=== PATIENT | male | born 1960 | race Caucasian/White ===

== ENCOUNTER → 2018-02-10 14:38 | Outpatient (CLI) | payer OTHER, SELFPAY ==
--- NOTE | 2018-02-10 15:53 | P.PCN_ITS ---
Cardiac Stress Test Report Referral & Results Date Patient Seen: 02/10/18 Time Patient Seen: 15:52 Indication: Chest pain Rest ECG: Unremarkable Procedure Note: Today following both written and verbal informed consent, the patient was exercised according to a standard Alex protocol. The patient exercised for a total of 9 min 5 sec achieving a maximum heart rate of 166. Patient's maximum systolic blood pressure was 200. This was an estimated 10.1 MET's. There are no ST-T segment changes identified Normal heart rate and blood pressure response perhaps slightly tachycardic overall Rare PVC identified Functional aerobic impairment rated 0 on the active scale Impression: No evidence of ischemia. Average exercise capacity for an active 57 -year-old Please note: Actual ECG tracings can be found in the PACS system.
== END ==
DX: R07.9 Chest pain, unspecified (principal)
CPT/HCPCS: 93016; 93017; 93018

== ENCOUNTER → 2018-10-15 09:22 | Outpatient (CLI) | payer OTHER, SELFPAY ==
--- NOTE | 2018-10-15 | DI.RAD.S_ITS ---
PROCEDURE: [place] BARIUM SWALLOW INDICATIONS: Dysphagia, unspecified COMPARISON: None. FINDINGS: Function: There is normal esophageal peristalsis. There was a single episode of minimal gastroesophageal reflux visualized to the level of the distal, lower margins of the esophagus. There is normal transit of a calibrated barium tablet through the esophagus into the stomach. Morphology: Air-contrast images demonstrate normal mucosal morphology. Single contrast views show no esophageal strictures, extrinsic mass effects, or diverticula. A small sliding hiatal hernia is noted. Limited images of the stomach demonstrate normal appearance. IMPRESSION: Minimal gastroesophageal reflux with small sliding hiatal hernia. Otherwise, unremarkable barium swallow examination. Dictated by: Lino Bowers M.D. on 10/15/2018 at 17:24 Approved by: Lino Bowers M.D. on 10/15/2018 at 17:26
== END ==
PROVIDERS: Visit Provider Family Medicine
DX: R13.10 Dysphagia, unspecified (principal); K44.9 Diaphragmatic hernia without obstruction or gangrene
CPT/HCPCS: 74220

== ENCOUNTER → 2019-03-03 08:54 | Outpatient (CLI) | payer OTHER, SELFPAY ==
--- NOTE | 2019-03-03 | DI.RAD.S_ITS ---
PROCEDURE: FL BARIUM SWALLOW W SPEECH INDICATIONS: dysphagia TECHNIQUE: Examination was conducted in conjunction with speech pathology per standard protocol. In the lateral projection, filming was performed of the patient swallowing. AP projection filming may also be performed with patient swallowing. COMPARISON: [facility], , [place] BARIUM SWALLOW, 10/15/2018, 9:57. FINDINGS: Function: The oral preparatory phase appears normal, with proper containment. The subsequent oral propulsive phase, pharyngeal phase, and esophageal phase of swallowing also appear normal with all proffered substances. No laryngotracheal penetration or aspiration. No pathologic vallecular pooling. Morphology: No cricopharyngeal bar is identified. No cervical esophageal webs. No Zenker's diverticulum. No strictures. IMPRESSION: Unremarkable modified barium swallow with speech pathology. Please see separate speech pathology report for further details. Dictated by: Lino Bowers M.D. on 03/03/2019 at 18:35 Approved by: Lino Bowers M.D. on 03/08/2019 at 10:03
--- NOTE | 2019-03-03 09:30 | ST.SWALLOW ---
Visit Care Team Role Provider Type Mk Gibson MD Attending Provider Physician Specialty: Ear, Nose, Throat Address: [address] [place] [address], [id number] Email: ST Modified Barium Swallow Study PACKAGING SUPERVISOR Modified Barium Swallow Study Start: 03/04/19 15:14 Freq: Status: Active Protocol: Document 03/03/19 15:14 TLC (Rec: 03/04/19 15:33 TLC [id number]) Modified Barium Swallow Study Total Time Visit Start Time 09:30 Visit Stop Time 10:00 Total Visit Minutes [address] Mk Gibson, ENT Reason for Referral Dysphagia Setting Setting Outpatient Care Patient Information Identification Type Name Patient History Patient presents for evaluation of dysphagia. Patient states he feels as if food/liquid occasionally goes down the wrong way and results in coughing both with liquids and solids which happens a few times a week, one coughing episode severe enough he suffered syncope ~2 months ago . Patient saw Dr. Gibson for laryngoscopy with no evidence of morbid disease. Barium swallow completed 10/15/18 shows minimal gastroesophageal reflux with small sliding hiatal hernia. Subjective Observations Patient was alert, oriented and cooperative during the exam. Patient Positioning Position View Lat-A/P Imaging Lateral View Textures Administered Trials Presented Thin Liquid via Spoon,Thin Liquid via Cup,[place] Liquid via Spoon,[place] Liquid via Cup,Honey Liquid via Spoon, Dysphagia Blenderized Textures ,Regular Textures Oral Phase Source: MBSIMP (TM) (C) Bolus Specific Scoring Grid Lip Closure No Impairment (WNL) Tongue Control During Bolus Hold No Impairment (WNL) Bolus Prep/Mastication No Impairment (WNL) Bolus Transport/Lingual Motion No Impairment (WNL) Oral Residue No Impairment (WNL) Additional Oral Phase Observations No oral impairment observed during study. Pharyngeal Phase Source: MBSIMP (TM) (C) Bolus Specific Scoring Grid Soft Palate Elevation No Impairment (WNL) Tongue Base Strength/Range of Motion Mild Impairment Laryngeal Elevation Mild Impairment Anterior Hyoid Movement No Impairment (WNL) Epiglottic Range of Motion Mild Impairment Vallecular Residue Yes Laryngeal Vestibular Closure Mild Impairment Pharyngeal Stripping Wave Mild Impairment Upper Esophageal Sphincter Opening Mild Impairment Residue in the Pyriform Sinuses Yes Additional Pharyngeal Phase Observations Observed partial superior movement of thyroid cartilage and partial approximation of arytenoids to epiglottic petiole as well as partial inversion of epiglottis which resulted in a collection of vallecular residue following all swallows. This residue cleared with subsequent swallows. Laryngeal vestibular closure was judged to be incomplete with one instance of penetration of puree textures during the swallow which was expelled from the airway after the swallow. No aspiration observed. Pharyngeal stripping wave was present but diminished. Pharyngoesophageal segment distension and duration were reduced resulting in collection of residue in pyriform sinus which cleared with subsequent swallows. Tongue base retraction was mildly impaired . A/P View Textures Administered Trials Presented [place]ubin[place] Liquid via Spoon, Dysphagia Blenderized Textures A/P View Observations Pharyngeal Contraction No Impairment (WNL) Esophageal Clearance Upright Position No Impairment (WNL) Additional Observations Complete clearance with esophageal coating Clinical Impressions Dysphagia Type Pharyngeal Findings Patient presents with mild- moderate pharyngeal dysphagia characterized by incomplete laryngeal elevation, epiglottic movement, laryngeal vestibular closure, tongue base retraction and pharyngoesophageal segment opening. This likely contributes to occasional episodes of aspiration consistent with patient's complaints. Recommend outpatient speech therapy for education and training in swallowing exercises to improve impaired physiological components of swallowing. Exercises to include: Effortful swallow, Magdaleno maneuver, Tongue pull back, Shaker/CTAR Rehabilitation Potential Good Patient Appropriate for Therapy Yes Recommendations Diet Liquids Order Thin Diet Order Regular Medication Recommendation As Tolerated Aspiration Precautions Recommended Precautions Upright at 90 Degrees,Small Bites/Sips,Effortful Swallow, Double Swallow Treatment Plan Therapy Recommendations Outpatient Speech Therapy
== END ==
PROVIDERS: Visit Provider Otolaryngology
DX: R13.10 Dysphagia, unspecified (principal)
CPT/HCPCS: 74230; 92611

== ENCOUNTER 2021-01-30 09:20 | Day surgery (SDC) | payer OTHER, SELFPAY ==
--- NOTE | 2021-01-30 | PATH_ITS ---
[facility] Accession Number: [id number] . 01 Material submitted: . colon - TRANSVERSE COLON POLYP X3 . 02 Diagnosis: Transverse Colon, Polyp x3, Biopsy: Tubular adenomas. MRV 02/01/2021 1014 Local . 02 Electronically signed: . Mckayla Capellan MD, Pathologist NPI- [id number] . 01 Gross description: . TRANSVERSE COLON POLYP X3: Received in formalin are 3 fragment(s) of giordano, soft tissue measuring 0.5 x 0.3 x 0.2 cm to 0.3 x 0.2 x 0.2 cm submitted entirely in 1 cassette(s) /OLGA 01/31/2021 0515 Local . 02 Pathologist provided ICD-10: D12.3 . 02 CPT . 157609 Performed at: 01 [facility] [address] [id number] MD Jules Ha MD Phone: [phone] Performed at: 02 [facility] [address] [place], [place] [id number] MD Mckayla Capellan MD Phone: [phone]
[2021-01-30 11:01] LABS: COVID19 -Nasal RAPID Negative (Negative)
[2021-01-30 11:16] VITALS: BMI 290.1
[2021-01-30] MEDS: SODIUM CHLORIDE 0.9% 1,000 ML 84 ML IV (11:25)
[2021-01-30 11:30] VITALS: BP 152/99; PULSE 95; RESP 16; TEMP 36.3; O2SAT 98
--- NOTE | 2021-01-30 11:36 | P.HP_ITS ---
History of Present Illness History of Present Illness Date Patient Seen: 01/30/21 Time Patient Seen: 11:36 [place] [facility] [place] Family history of colon cancer in his mom. Personal history of colon polyps. Patient History Medical History Change in bowel habits Depression Erectile dysfunction Family history of colon cancer HTN (hypertension) Personal history of colonic polyps Surgical History H/O colonoscopy with polypectomy H/O vasectomy H/O vasectomy History of appendectomy History of appendectomy History of tonsillectomy History of tonsillectomy Family & Social History Family History Father Hypertension Diabetes mellitus Stroke Mother Cancer Social History: household members significant other,family Tobacco & Substance use: Smoking Status Never smoker alcohol intake current alcohol intake frequency 0-2 drinks per day Substance Use Type does not use Meds Home Medications and Allergies Home Medications Medication Instructions Recorded Confirmed Type bupropion HCl 300 mg 24 hr tablet, 300 mg PO ONCE 12/17/17 01/30/21 History extended release (Wellbutrin XL) hydrochlorothiazide 12.5 mg capsule 12.5 mg PO DAILY 12/17/17 01/30/21 History sertraline 25 mg tablet (Zoloft) 20 mg PO DAILY tab 12/17/17 01/30/21 History telmisartan 20 mg tablet 20 mg PO DAILY 01/30/21 01/30/21 History Allergies Allergy/AdvReac Type Severity Reaction Status Date / Time venom-honey bee Allergy Severe ANAPHYLAXIS Verified 01/30/21 11:16 [BEE VENOM (HONEY BEE)] adhesive [ADHESIVE] Allergy Intermediate RASH Verified 01/30/21 11:16 PAPER/SILK TAPE OK Review of Systems Review of Systems ROS: Yes All systems reviewed with the patient and are negative except as otherwise documented Exam Vital Signs (past 8 hours): - 01/30/21 11:30 Temperature 97.4 F L Pulse Rate 95 H Respiratory Rate 16 Blood Pressure 152/99 H Pulse Oximetry 98 Oxygen Delivery Method Room Air Const General: cooperative and comfortable Orientation: alert HENMT Head: normocephalic Ears: external ears normal Nose: external nose normal Face and sinus: normal facial exam Mouth: oral mucosae normal Eyes General: appearance normal, both eyes and all related structures Neck Neck: normal visual inspection Chest Chest: normal inspection of the chest Resp Effort & Inspection: normal respiratory effort Auscultation: clear to auscultation bilaterally Cardio Rate: regular rate Rhythm: regular rhythm Heart Sounds: no murmurs GI Inspection: normal to inspection Palpation: soft and No tender Auscultation: normal bowel sounds Skin General: no rashes or lesions noted and No jaundice Neuro General: patient alert and moves all extremities Cognition: normal cognition Speech: speech normal Extrem General: no pedal edema Psych Appearance: grossly normal Objective Labs Labs: Laboratory Results - last 24 hr 01/30/21 10:06 SARS-CoV-2 (PCR) Negative Assessment & Plan Assessment & Plan narrative: Personal history of colon polyps family history of colon cancer. Colonoscopy is planned for today.
--- NOTE | 2021-01-30 11:39 | PM.PREOP ---
Pre-operative Note COVID-19 COVID-19 status: Negative Result date/Date tested (Pos, Neg/Pending): 01/30/21 Interval Note History & Physical reviewed/Exam performed by Physician: Yes Changes to H&P: No ASA Class (for procedural sedation): II
[2021-01-30] MEDS: fentaNYL 250 MCG/5 ML INJ IV (12:11)
[2021-01-30] MEDS: MIDAZOLAM 5 MG/5 ML VIAL IV (12:11)
--- NOTE | 2021-01-30 12:30 | PM.OP.ENDO ---
Operative Date/Time/Diagnoses Date of procedure: 01/30/21 Time of procedure: 12:30 Pre-op diagnosis: Family history of colon cancer and a personal history of colon polyps Post-op diagnosis: same Procedure & Clinicians Study performed: Colonoscopy with hot and cold snare polypectomies Same procedure as scheduled: Yes Indications: Personal history of colon polyps and family history of colon cancer Surgeon: Jeremiah Cohen Procedure Notes SCOAP/Timeout: Done Procedure in detail: After the risks and benefits were explained, written and verbal informed consent was obtained. The patient was brought into the procedure room and placed into the left lateral decubitus position. Conscious sedation medication was applied as per nursing documentation. Digital rectal examination was accomplished. The scope was introduced into the patient and advanced under direct visualization to the cecum as identified by the appendiceal orifice and ileocecal valve. The scope was slowly withdrawn to carefully examine the mucosa for any defects or lesions. Comprehensive imaging was accomplished throughout the rectum including the dentate line. The colon was decompressed, the scope was then removed from the patient who tolerated the procedure well. 4 mg Versed 100 mcg fentanyl Bowel prep adequate Adult colonoscope Scope withdrawal time: 12 minutes Sedation minutes: 20 Complications: none Impression: There were 3 small polyps ranging in size from 5-6 mm in the transverse colon. These were removed by cold snare polypectomy x1 and hot snare polypectomy x2. No additional pathology was appreciated throughout. Endoscopic diagnosis Colon polyps x3 Post-procedure Recommendations: Colonscopy in 3 years Plan for aftercare: 1. Await histopathology 2. If adenomatous features are confirmed, repeat colonoscopy will be suggested for 3 years time. Disposition: PACU
[2021-01-30 12:40] VITALS: BP 108/81; PULSE 83; RESP 13; TEMP 36.5; O2SAT 93
[2021-01-30 12:45] VITALS: BP 124/89; PULSE 80; RESP 11; TEMP 36.3; O2SAT 94
[2021-01-30 12:50] VITALS: BP 123/83; PULSE 85; RESP 16; TEMP 36; O2SAT 94
[2021-01-30 12:52] VITALS: BP 114/86; PULSE 86; RESP 19; TEMP 36.7; O2SAT 93
== END 2021-01-30 12:07 | disposition home or self-care (01) ==
PROVIDERS: PCP Student in an Organized Health Care Education/Training Program; Referring Provider Internal Medicine Gastroenterology; Visit Provider Internal Medicine Gastroenterology
PROC: 0DJD8ZZ Inspection of Lower Intestinal Tract, Via Natural or Artificial Opening Endoscopic (ICD-10-PCS; CPT 45378; principal; 2021-01-30 11:00)
DX: Z12.11 Encounter for screening for malignant neoplasm of colon (principal); Z80.0 Family history of malignant neoplasm of digestive organs; Z86.010 Personal history of colon polyps; I10 Essential (primary) hypertension; Z20.822 Contact with and (suspected) exposure to COVID-19; D12.3 Benign neoplasm of transverse colon
CPT/HCPCS: 45385; 45380; 87635; J2250; J3010

== ENCOUNTER 2021-03-18 06:27 | Emergency (ER) | payer OTHER, SELFPAY ==
[2021-03-18] VITALS (13 sets, daily range): BP systolic 111–148; BP diastolic 74–93; PULSE 76–94; RESP 12–30; TEMP 36.7; O2SAT 88–96; BMI 32.1
--- NOTE | 2021-03-18 07:10 | PC.NURSE ---
patient's 02 saturation dropped down to 88% on RA but immediately went back up to 92%
--- NOTE | 2021-03-18 07:31 | DI.RAD.S_ITS ---
PROCEDURE: XR CHEST 1V INDICATIONS: COVID TECHNIQUE: One view of the chest was acquired. COMPARISON: None. FINDINGS: Surgical changes and devices: None. Lungs and pleura: Low lung volumes are noted. This causes a crowded appearance to the lung markings and limits evaluation. On this semiupright portable chest examination, no large pneumothorax or large pleural effusions are seen. Mild bilateral patchy interstitial type infiltrates are seen. Mediastinum: Mediastinal contours appear normal. Heart size is normal. Bones and chest wall: No suspicious bony lesions. Overlying soft tissues appear unremarkable. IMPRESSION: Bilateral patchy interstitial type infiltrates are seen, which are overall mild in degree. These imaging findings are consistent with early/mild COVID pneumonia. Dictated by: Paco Kowalski M.D. on 03/18/2021 at 7:18 Approved by: Paco Kowalski M.D. on 03/18/2021 at 7:19
--- NOTE | 2021-03-18 07:36 | ED_ITS ---
HPI - SOB/Dyspnea General Chief Complaint: Shortness of Breath/Dyspnea Stated Complaint: positive covid, difficulty breathing nausea Time Seen by Provider: 03/18/21 06:37 Source: patient Mode of arrival: Wheelchair Limitations: no limitations History of Present Illness HPI Narrative: 60 year old Male with history of COPD, hypertension not vaccinated for COVID presenting today with had known positive COVID test with increased chest pain shortness of breath cough body aches. He is currently diaphoretic and having a hard time breathing. O2 sat remains 92% on air. He says he generally does not feel well. He works at a high school. He started not feeling well 6 days ago. He had a test at that time and it was negative. 3 days after that he was feeling worse and had a 2nd test and it was positive. His symptoms continue to worsen knee is here in the ED. Related Data Home Medications Medication Instructions Recorded Confirmed bupropion HCl 300 mg 24 hr tablet, 300 mg PO ONCE 12/17/17 01/30/21 extended release (Wellbutrin XL) hydrochlorothiazide 12.5 mg capsule 12.5 mg PO DAILY 12/17/17 01/30/21 sertraline 25 mg tablet (Zoloft) 20 mg PO DAILY tab 12/17/17 01/30/21 telmisartan 20 mg tablet 20 mg PO DAILY 01/30/21 01/30/21 Allergies Allergy/AdvReac Type Severity Reaction Status Date / Time venom-honey bee Allergy Severe ANAPHYLAXIS Verified 01/30/21 11:16 [BEE VENOM (HONEY BEE)] adhesive [ADHESIVE] Allergy Intermediate RASH Verified 01/30/21 11:16 PAPER/SILK TAPE OK Review of Systems Review of Systems ROS Unobtainable: All systems reviewed & are unremarkable except as noted in HPI and below Constitutional Constitutional: Reports body ache(s), Reports chills, Reports excessive sweating, Reports fatigue and Reports fever(s) ENT Ears, Nose, Mouth, and Throat: Denies vertigo, Denies dizziness and Reports sore throat Cardiovascular Cardiovascular: Reports chest pain and Denies syncope Respiratory Respiratory: Reports as per HPI, Reports chest congestion, Reports cough and Reports pain on inspiration Gastrointestinal Gastrointestinal: Reports abdominal pain, Denies nausea and Denies vomiting Genitourinary Genitourinary: Denies urinary frequency and Denies urinary hesitancy Musculoskeletal Musculoskeletal: Reports myalgias Neurologic Neurologic: Denies vertigo, Denies dizziness and Denies syncope Endocrine Endocrine: Reports excessive sweating and Reports fatigue Patient History Medical History Change in bowel habits Depression Erectile dysfunction Family history of colon cancer HTN (hypertension) Personal history of colonic polyps Surgical History H/O colonoscopy with polypectomy H/O vasectomy H/O vasectomy History of appendectomy History of appendectomy History of tonsillectomy History of tonsillectomy Family History Father Hypertension Diabetes mellitus Stroke Mother Cancer Social History household members: significant other and family occupational status: employed Smoking Status: Never smoker alcohol intake: current Smoking Status: Never smoker alcohol intake frequency: 0-2 drinks per day Substance Use Type: does not use Exam Initial Vital Signs Initial Vital Signs: Vital Signs Temperature 98.0 F 03/18/21 06:32 Pulse Rate 90 03/18/21 06:32 Respiratory Rate 30 H 03/18/21 06:32 Blood Pressure 148/93 H 03/18/21 06:32 Pulse Oximetry 92 03/18/21 06:32 GENERAL: 60-year-old male diaphoretic slightly tachypneic appears to not feel well HEENT: Head atraumatic,EOMI, pupils reactive, face symmetric, moist mucous membranes CARDIOVASCULAR: Regular rate and rhythm without murmurs, rubs or gallops. RESPIRATORY: Tachypneic clear breath sounds bilaterally ABDOMEN: Soft, nontender. Normoactive bowel sounds all 4 quadrants. No guarding or rebound. EXTREMITIES: Normal range of motion, no clubbing or edema. Neurovascularly intact NEUROLOGICAL: Alert and oriented x4.Normal gait and speech. SKIN: Warm, dry, no laceration, no petechiae, no rashes or lesions. Course Orders Ordered: ED Orders 03/18/21 06:35 C-Reactive Protein Quant Stat Complete Blood Count AUTO DIFF Stat Comprehensive Metabolic Panel Stat Lactate (Lactic Acid) Stat Procalcitonin Stat Troponin & CK Cardiac Panel Stat 03/18/21 07:31 XR chest 1V Stat EKG-12 Lead Stat 03/18/21 08:23 Blood Culture Stat COVID19 - ADMIT (HOT TOP LINER swab/PCR) Stat D Dimer Stat 03/18/21 08:56 Procalcitonin Stat Discontinued Medications Albuterol (Albuterol Hfa Prepack) 1 box MISC SEEINSTR ONE Stop: 03/18/21 07:34 Last Admin: 03/18/21 08:36 Dose: 1 box Documented by: EMI Sodium Chloride (Normal Saline 0.9%) 1,000 mls @ 125 mls/hr IV CONT SALO Last Admin: 03/18/21 08:14 Dose: 125 mls/hr Documented by: NIMO Vital Signs Vital signs: Vital Signs - 8 hr 03/18/21 06:32 03/18/21 06:39 03/18/21 07:00 Temperature 98.0 F Pulse Rate 90 81 83 Respiratory Rate 30 H 17 16 Blood Pressure 148/93 H 122/80 Pulse Oximetry 92 92 92 03/18/21 07:30 03/18/21 08:00 03/18/21 08:30 Temperature Pulse Rate 83 81 78 Respiratory Rate 15 19 12 Blood Pressure 120/83 121/81 132/93 H Pulse Oximetry 92 93 92 03/18/21 08:37 03/18/21 09:00 03/18/21 09:30 Temperature Pulse Rate 76 77 80 Respiratory Rate 20 14 21 Blood Pressure 111/74 Pulse Oximetry 96 96 95 03/18/21 10:00 03/18/21 10:29 03/18/21 10:31 Temperature Pulse Rate 76 85 Respiratory Rate 17 Blood Pressure 111/75 117/78 Pulse Oximetry 95 93 03/18/21 10:46 Temperature Pulse Rate 94 H Respiratory Rate 14 Blood Pressure 117/78 Pulse Oximetry 94 MDM - SOB/Dyspnea Lab Data Result diagrams: 03/18/21 06:35 03/18/21 06:35 Labs: Lab Results 03/18/21 03/18/21 03/18/21 Range/Units 06:35 06:35 06:35 WBC 4.9 (4.5-11.0) X10^3/uL RBC 4.85 (4.5-5.9) X10^6/uL Hgb 16.0 (13.5-17.5) g/dL Hct 47.4 (41-53) % MCV 97.7 (80-100) fL MCH 32.9 (26-34) PG MCHC 33.7 (30-36) % RDW 13.5 (11.6-14.8) % Plt Count 143 L (150-400) X10^3/uL Neut % (Auto) 79.7 H (50-75) % Lymph % (Auto) 6.1 L (25-40) % [place] % (Auto) 8.9 (3-14) % Eos % (Auto) 0.2 L (2-4) % Baso % (Auto) 5.1 H (0-2) % Neut # (Auto) 3900 (7723-8682) /uL Lymph # (Auto) 300 L (9618-3618) /uL [place] # (Auto) 400 (0-900) /uL Eos # (Auto) 0 (0-450) /uL Baso # (Auto) 200 H (0-100) /uL D-Dimer (<230) ng/mL Sodium 132 L (137-145) mmol/L Potassium 4.1 (3.4-5.1) mmol/L Chloride 96 L (98-107) mmol/L Carbon Dioxide 27 (22-32) mmol/L BUN 21 H (9-20) mg/dL Creatinine 1.01 (0.66-1.25) mg/dL Estimated GFR > 60.0 (>60) mL/min BUN/Creatinine Ratio 20.8 (6-22) Glucose 133 H (80-110) mg/dL Lactate 2.0 (0.7-2.1) mmol/L Calcium 8.8 (8.4-10.2) mg/dL Total Bilirubin 0.6 (0.2-1.3) mg/dL AST 89 H (17-59) IU/L ALT 61 H (<50) IU/L Alkaline Phosphatase 86 (38-126) U/L Total Creatine Kinase 436 H (55-170) U/L CK-MB (CK-2) 1.77 (<2.37) ng/mL CK-MB (CK-2) Rel Index 0.4 L (1.5-5.0) % Troponin I < 0.012 (0.01-0.034) ng/mL C-Reactive Protein 5.6 H (<1.0) mg/dL Total Protein 7.5 (6.3-8.2) g/dL Albumin 4.4 (3.5-5.0) g/dL Globulin 3.1 (1.7-4.1) g/dL Albumin/Globulin Ratio 1.4 (1.0-2.8) Procalcitonin 0.45 (<0.5) ng/mL SARS-CoV-2 (PCR) (Negative) 03/18/21 03/18/21 03/18/21 Range/Units 08:23 08:23 08:56 WBC (4.5-11.0) X10^3/uL RBC (4.5-5.9) X10^6/uL Hgb (13.5-17.5) g/dL Hct (41-53) % MCV (80-100) fL MCH (26-34) PG MCHC (30-36) % RDW (11.6-14.8) % Plt Count (150-400) X10^3/uL Neut % (Auto) (50-75) % Lymph % (Auto) (25-40) % [place] % (Auto) (3-14) % Eos % (Auto) (2-4) % Baso % (Auto) (0-2) % Neut # (Auto) (8394-2096) /uL Lymph # (Auto) (6737-0744) /uL [place] # (Auto) (0-900) /uL Eos # (Auto) (0-450) /uL Baso # (Auto) (0-100) /uL D-Dimer < 200 (<230) ng/mL Sodium (137-145) mmol/L Potassium (3.4-5.1) mmol/L Chloride (98-107) mmol/L Carbon Dioxide (22-32) mmol/L BUN (9-20) mg/dL Creatinine (0.66-1.25) mg/dL Estimated GFR (>60) mL/min BUN/Creatinine Ratio (6-22) Glucose (80-110) mg/dL Lactate (0.7-2.1) mmol/L Calcium (8.4-10.2) mg/dL Total Bilirubin (0.2-1.3) mg/dL AST (17-59) IU/L ALT (<50) IU/L Alkaline Phosphatase (38-126) U/L Total Creatine Kinase (55-170) U/L CK-MB (CK-2) (<2.37) ng/mL CK-MB (CK-2) Rel Index (1.5-5.0) % Troponin I (0.01-0.034) ng/mL C-Reactive Protein (<1.0) mg/dL Total Protein (6.3-8.2) g/dL Albumin (3.5-5.0) g/dL Globulin (1.7-4.1) g/dL Albumin/Globulin Ratio (1.0-2.8) Procalcitonin 0.39 (<0.5) ng/mL SARS-CoV-2 (PCR) Positive H (Negative) Imaging Data Chest x-ray: Radiologist's Impression: PROCEDURE:? XR CHEST 1V ? INDICATIONS:? COVID ? TECHNIQUE:? One view of the chest was acquired.? ? COMPARISON:? None. ? FINDINGS:? ? Surgical changes and devices:? None.? ? Lungs and pleura:? Low lung volumes are noted. This causes a crowded appearance to the lung markings and limits evaluation.? On this semiupright portable chest examination, no large pneumothorax or large pleural effusions are seen.? Mild bilateral patchy interstitial type infiltrates are seen. ? Mediastinum:? Mediastinal contours appear normal.? Heart size is normal.? ? Bones and chest wall:? No suspicious bony lesions.? Overlying soft tissues appear unremarkable.? IMPRESSION:? Bilateral patchy interstitial type infiltrates are seen, which are overall mild in degree.? These imaging findings are consistent with early/mild COVID pneumonia. ? ? Dictated by: Paco Kowalski M.D. on 03/18/2021 at 7:18 ECG Data Interpretation: Normal sinus rhythm rate 81 HI interval 146 QRS [address] changes or T-wave inversions MDM Narrative Medical decision making narrative: Patient is unvaccinated 60-year-old male who initially is quite tachypneic and diaphoretic he has had a couple of readings of oxygen below 90% but is generally maintaining O2 levels of 94-96%. His is here as well she had some abnormal blood work initially thought they may have miss labeled at the blood so we repeated a procalcitonin which is relatively the same so blood work is probably accurate. He is at risk for decompensated him he has COPD hypertension initially looked poorly. I have arranged for outpatient monoclonal antibody for him. I have discussed disease progression and home monitoring with him as well. Discharge Plan Departure Patient Disposition: Home Clinical Impression: COVID-19 Instructions: DI for COVID-19 (Suspected or Confirmed ) Activity Restrictions/Additional Instructions: I have ordered monoclonal antibody from [facility]. There information is below. You should receive a phone call from them tomorrow. This will help you stay out of the hospital. [address] [place] [address], [id number], phone [phone] * if you have not yet been vaccinated is still recommended and encouraged that you do so once your infection has passed At home: -Monitor oxygen with pulse oximeter. Oxygen should be greater than 90% -Wash hands frequently. -Stay isolated at home please follow the isolation instructions below. -Increase fluid intake. -you may take Tylenol as directed if needed for pain or fever Emergency warning signs for COVID-19: - Difficulty breathing or shortness of breath, oxygen less than 90% - Persistent pain or pressure in the chest - New confusion or inability to arouse - Bluish lips or face CDC Guidelines for home isolation: - Stay away from others - Limit contact with pets and animals: If you must care for a pet, wash your hands before and after interacting with them - Wear a mask while in public all places - Cover your mouth and nose with a tissue when you cough or sneeze. Dispose of tissues in a lined trash can and wash your hands immediately with soap and water for at least 20 seconds. If soap and water are not available, clean hands with alcohol-based hand assembler metal furniture that contains at least 60% alcohol. - Clean your hands often with soap and water for at least 20 seconds - Avoid touching your eyes, nose and mouth with unwashed hands - Do not share dishes, drinking glasses, cups, eating utensils, towels, or bedding with other people in your home. After using these items, wash them thoroughly with soap and water or put in the leave specialist. - Clean high-touch surfaces in your isolation area (?sick room? and bathroom) every day; let a caregiver clean and disinfect high-touch surfaces in other areas of the home. Clean the area or item with soap and water or another detergent if it is dirty. Then, use a household disinfectant. Prescriptions: No Action bupropion HCl [Wellbutrin XL] 300 mg tablet extended release 24 hr 300 mg PO ONCE RF: 0 sertraline [Zoloft] 25 mg tablet 20 mg PO DAILY RF: 0 hydrochlorothiazide 12.5 mg capsule 12.5 mg PO DAILY RF: 0 telmisartan 20 mg tablet 20 mg PO DAILY RF: 0 Referrals: Agnes Baron MD [Primary Care Provider] -
[2021-03-18 07:49] LABS: Add Manual Diff / Slide Review NO; Basophils Absolute Auto 200 /uL (0-100); Basophils Percent Auto 5.1 % (0-2); Eosinophils Absolute Auto 0 /uL (0-450); Eosinophils Percent Auto 0.2 % (2-4); Hematocrit 47.4 % (41-53); Lymphocytes Absolute Auto 300 /uL (1100-4500); Lymphocytes Percent Auto 6.1 % (25-40); Mean Corpuscular HGB Conc 33.7 % (30-36); Mean Corpuscular Hemoglobin 32.9 PG (26-34); Mean Corpuscular Volume 97.7 fL (80-100); Monocytes Absolute Auto 400 /uL (0-900); Monocytes Percent Auto 8.9 % (3-14); Neutrophils Absolute Auto 3900 /uL (1500-7000); Neutrophils Percent Auto 79.7 % (50-75); Platelet Count 143 X10^3/uL (150-400); Red Blood Cell Count 4.85 X10^6/uL (4.5-5.9); Red Cell Distribution Width 13.5 % (11.6-14.8); White Blood Cell Count 4.9 X10^3/uL (4.5-11.0)
[2021-03-18 07:52] LABS: Alanine Aminotransferase 61 IU/L (<50); Albumin 4.4 g/dL (3.5-5.0); Albumin Globulin Ratio 1.4 (1.0-2.8); Alkaline Phosphatase 86 U/L (38-126); Aspartate Aminotransferase 89 IU/L (17-59); BUN Creatinine Ratio 20.8 (6-22); Bilirubin Total 0.6 mg/dL (0.2-1.3); Blood Urea Nitrogen 21 mg/dL (9-20); C-Reactive Protein Quant 5.6 mg/dL (<1.0); Calcium 8.8 mg/dL (8.4-10.2); Carbon Dioxide 27 mmol/L (22-32); Chloride 96 mmol/L (98-107); Creatine Kinase 436 U/L (55-170); Estimated Glomerular Filt Rate > 60.0 mL/min (>60); Globulin 3.1 g/dL (1.7-4.1); Glucose 133 mg/dL (80-110); Potassium 4.1 mmol/L (3.4-5.1); Sodium 132 mmol/L (137-145); Total Protein 7.5 g/dL (6.3-8.2)
[2021-03-18 08:00] LABS: Troponin I < 0.012 ng/mL (0.01-0.034)
[2021-03-18 08:05] LABS: HEMOLYSIS 30 (0-50); Procalcitonin 0.45 ng/mL (<0.5)
[2021-03-18 08:12] LABS: CKMB % Relative Index 0.4 % (1.5-5.0); Creatine Kinase MB 1.77 ng/mL (<2.37)
[2021-03-18] MEDS: SODIUM CHLORIDE 0.9% 1,000 ML 125 ML IV (08:14)
--- NOTE | 2021-03-18 08:31 | PC.NURSE ---
Iv placed by PM nurse.
--- NOTE | 2021-03-18 08:33 | PC.NURSE ---
patient's breathing is labored with an o2 saturation of 92% on RA. He is currently being treated with albuterol. He complains of intermittent nausea and but is not actively vomiting.
[2021-03-18] MEDS: ALBUTEROL HFA PREPACK 1 BOX MISC (08:36)
[2021-03-18 08:47] LABS: D Dimer < 200 ng/mL (<230)
[2021-03-18 09:31] LABS: COVID19 - ADMIT (NP swab/PCR) POSITIVE (Negative)
[2021-03-18 09:40] LABS: Procalcitonin 0.39 ng/mL (<0.5)
== END 2021-03-18 10:49 | disposition home or self-care (01) ==
PROVIDERS: Emergency Provider Emergency Medicine; PCP Student in an Organized Health Care Education/Training Program
DX: U07.1 COVID-19 (principal); R07.9 Chest pain, unspecified; R06.82 Tachypnea, not elsewhere classified
CPT/HCPCS: 36415; 71045; 80053; 82550; 82553; 83605; 84145; 84484; 85025; 85379; 86140; 87040; 87635; 93005; 94640; 96360; 96361; 99284; C9803

== ENCOUNTER 2021-03-19 08:31 | Emergency (ER) | payer OTHER, SELFPAY ==
--- NOTE | 2021-03-19 08:36 | ED.SOB ---
HPI - SOB/Dyspnea General Chief Complaint: Back Pain/Injury Stated Complaint: COVID+ AND HAS COPD Time Seen by Provider: 03/19/21 08:34 History of Present Illness HPI Narrative: 60-year-old male with known COVID and history of COPD as well as hypertension presents for evaluation of worsening symptoms. He and his have both been diagnosed with COVID, and he was here yesterday and had a thorough evaluation by my partner. He had a rough night sleeping and continues to be short of breath with cough and he has developed back spasms with coughing. He uses a home pulse oximeter and after a coughing spell this morning noted that he dipped into the 80s and slowly came back to mid 90s but he came in for evaluation none the less. He is expecting a call from [facility] today to schedule an infusion of monoclonal antibodies. He denies nausea, vomiting or diarrhea. Related Data Home Medications Medication Instructions Recorded Confirmed bupropion HCl 300 mg 24 hr tablet, 300 mg PO ONCE 12/17/17 01/30/21 extended release (Wellbutrin XL) hydrochlorothiazide 12.5 mg capsule 12.5 mg PO DAILY 12/17/17 01/30/21 sertraline 25 mg tablet (Zoloft) 20 mg PO DAILY tab 12/17/17 01/30/21 telmisartan 20 mg tablet 20 mg PO DAILY 01/30/21 01/30/21 Previous Rx's Medication Instructions Recorded cyclobenzaprine 10 mg tablet 10 mg PO TID PRN #14 tab 03/19/21 Allergies Allergy/AdvReac Type Severity Reaction Status Date / Time venom-honey bee Allergy Severe ANAPHYLAXIS Verified 01/30/21 11:16 [BEE VENOM (HONEY BEE)] adhesive [ADHESIVE] Allergy Intermediate RASH Verified 01/30/21 11:16 PAPER/SILK TAPE OK Review of Systems Review of Systems Narrative: GENERAL: See HPI. HEENT: Denies sinus pain, ear pain, sore throat, difficulty swallowing, dizziness. RESPIRATORY: See HPI CARDIOVASCULAR: Denies chest pain, palpitations, orthopnea, edema, GASTROINTESTINAL: Denies nausea, vomiting, abdominal pain, diarrhea, constipation, melena. : Denies dysuria, frequency, incontinence, hematuria, urinary retention. MUSCULOSKELETAL: See HPI SKIN: Denies rash, skin lesions, or other NEUROLOGIC: Denies weakness, headache, numbness, change in speech, confusion, seizures, incoordination. PSYCHIATRIC: No concerning psychosocial issues. 12 point review of systems is negative except for those stated above Patient History Medical History Change in bowel habits Depression Erectile dysfunction Family history of colon cancer HTN (hypertension) Personal history of colonic polyps Surgical History H/O colonoscopy with polypectomy H/O vasectomy H/O vasectomy History of appendectomy History of appendectomy History of tonsillectomy History of tonsillectomy Family History Father Hypertension Diabetes mellitus Stroke Mother Cancer Social History household members: significant other and family occupational status: employed Smoking Status: Never smoker alcohol intake: current Smoking Status: Never smoker alcohol intake frequency: 0-2 drinks per day Substance Use Type: does not use Exam Narrative Exam Narrative: GENERAL: [60 year old patient appears stated age. Well-developed patient, obviously not feeling well, some dry and hacking cough lowest pulse ox 88% which quickly nadiya to mid 90s. HEAD: Atraumatic. Normocephalic. EYES: Pupils equal round and reactive. Extraocular motions intact. No scleral icterus. No injection or drainage. ENT: Nose without bleeding, purulent drainage. Throat without erythema, tonsillar hypertrophy or exudate. Airway patent. NECK: Trachea midline. Non tender CARDIOVASCULAR: Regular rate and rhythm without murmurs, gallops, or rubs. RESPIRATORY: Decreased breath sounds bilaterally with prolonged expiratory phase, crackles in bilateral bases GASTROINTESTINAL: Abdomen soft, non-tender, nondistended. EXTREMITIES: No edema or joint tenderness. BACK: Nontender without deformity or crepitance. No flank tenderness. NEURO: AOx3. SKIN: No rash or erythema of visible areas Initial Vital Signs Initial Vital Signs: Vital Signs Pulse Rate 77 03/19/21 08:42 Respiratory Rate 26 H 03/19/21 08:42 Pulse Oximetry 94 03/19/21 08:42 Course Orders Ordered: Discontinued Medications Cyclobenzaprine HCl (Cyclobenzaprine 10 Mg Tablet) 10 mg PO NOW ONE Stop: 03/19/21 08:45 Last Admin: 03/19/21 08:59 Dose: 10 mg Documented by: RASHEED Vital Signs Vital signs: Vital Signs - 8 hr 03/19/21 08:42 03/19/21 08:43 03/19/21 08:49 Temperature 98.1 F Pulse Rate 77 77 Respiratory Rate 26 H 18 Blood Pressure 141/81 H 141/81 H Pulse Oximetry 94 95 03/19/21 09:15 Temperature Pulse Rate 77 Respiratory Rate 16 Blood Pressure 128/76 Pulse Oximetry 95 MDM - SOB/Dyspnea MDM Narrative Medical decision making narrative: Patient with known COVID pneumonia presents with back spasms and report of low oxygen level at home. His exam here is very reassuring, though he clearly does not feel well his work of breathing is not significant, pulse ox here initially 88% but quickly improved to 95% on room air. There is no indication for hospitalization. We discussed some cyclobenzaprine to help with the back spasms that occur with coughing. He has been put in contact with [facility] and can hopefully get monoclonal antibodies. Return precautions given, questions answered to the apparent satisfaction of patient Discharge Plan Departure Patient Disposition: Home Clinical Impression: COVID-19, Back muscle spasm Instructions: DI for Back Spasm, DI for COVID-19 (Suspected or Confirmed ) Activity Restrictions/Additional Instructions: *You have been diagnosed with [ COVID-19] *What to do: * per recommendations from the CDC and the [facility] Department of Health * stay home except to get medical care. Restrict activities outside your home, except for getting medical care. Do not go to work, school, or public areas. Avoid using public transportation, ride sharing, or taxis. * separate yourself from other people in your home. * call ahead before visiting your doctor * Wear a facemask * Cover your coughs and sneezes * Clean your hands often * Avoid sharing household items * Clean all high-touch services every day * Monitor your symptoms and seek prompt medical attention if your illness is worsening, particularly with difficulty in breathing. You may discontinue your isolation when: 1. You have been fever-free for at least 24 hours without the use of fever reducing medication, AND 2. Your symptoms are getting better 3. At least 10 days have passed since symptoms first appeared Individuals with laboratory confirmed COVID-19 who have not had any symptoms may discontinue home isolation when at least 10 days have passed since the date of their first COVID-19 diagnostic test and have had no subsequent illness I sent a prescription for Cyclobenzaprine 10mg to [facility] in [place]. This should help with your muscle spasms. Please contact [facility] if you don't hear from them by lunch time today. Dr. Sands ordered Monoclonal Antibodies for you. [phone] Prescriptions: New cyclobenzaprine 10 mg tablet 10 mg PO TID PRN (Reason: muscle spasm) Qty: 14 RF: 0 No Action bupropion HCl [Wellbutrin XL] 300 mg tablet extended release 24 hr 300 mg PO ONCE RF: 0 sertraline [Zoloft] 25 mg tablet 20 mg PO DAILY RF: 0 hydrochlorothiazide 12.5 mg capsule 12.5 mg PO DAILY RF: 0 telmisartan 20 mg tablet 20 mg PO DAILY RF: 0 Referrals: Agnes Baron MD [Primary Care Provider] -
[2021-03-19 08:42] VITALS: PULSE 77; RESP 26; O2SAT 94
[2021-03-19 08:43] VITALS: BP 141/81
[2021-03-19 08:49] VITALS: BP 141/81; PULSE 77; RESP 18; TEMP 36.7; O2SAT 95; BMI 32.1
[2021-03-19] MEDS: CYCLOBENZAPRINE 10 MG TABLET PO (08:59)
[2021-03-19 09:15] VITALS: BP 128/76; PULSE 77; RESP 16; O2SAT 95
== END 2021-03-19 09:15 | disposition home or self-care (01) ==
PROVIDERS: Emergency Provider Emergency Medicine; PCP Student in an Organized Health Care Education/Training Program
DX: U07.1 COVID-19 (principal); M62.830 Muscle spasm of back
CPT/HCPCS: 99283

== ENCOUNTER 2023-04-25 12:37 | Emergency (ER) | payer MEDICARE, OTHER, SELFPAY ==
[2023-04-25 12:52] VITALS: BP 132/82; PULSE 87; RESP 16; TEMP 36.5; O2SAT 97; BMI 32.1
--- NOTE | 2023-04-25 12:58 | DI.US.S_ITS ---
PROCEDURE: US PERIPH VENOUS LOW EXTREM RT INDICATIONS: history of DVT, pain and redness TECHNIQUE: Real-time imaging, as well as color and pulse Doppler interrogation, were performed of the lower extremity deep veins from the inguinal ligament to the popliteal fossa, with documentation of the visualized calf veins. COMPARISON: None. FINDINGS: The common femoral, femoral, popliteal, and the visualized calf veins are normally compressible, and free of intraluminal thrombus. Color and pulse Doppler demonstrate normal phasic intraluminal flow. There is normal augmentation response to distal compression maneuver Short segment occlusive thrombus in an anterior branch of the distal greater saphenous vein, corresponding to the area of inflammation. The thrombus measures approximately 5 cm in length.. IMPRESSION: 1. No DVT, right lower extremity. 2. Short segment focal greater saphenous vein occlusive clot, corresponding to the area of inflammation. Dictated by: Jeremias Dent M.D. on 04/25/2023 at 13:45 Approved by: Jeremias Dent M.D. on 04/25/2023 at 13:47
--- NOTE | 2023-04-25 15:24 | ED.EXTPRO ---
HPI - Extremity Problem General Chief complaint: Extremity Problem,Nontraumatic Stated complaint: rt leg poss blood clot Time Seen by Provider: 04/25/23 15:20 Source: patient Mode of arrival: Ambulatory Related Data Home Medications Medication Instructions Recorded Confirmed bupropion HCl 300 mg 24 hr tablet, 300 mg PO ONCE 12/17/17 01/30/21 extended release (Wellbutrin XL) hydrochlorothiazide 12.5 mg capsule 12.5 mg PO DAILY 12/17/17 01/30/21 sertraline 25 mg tablet (Zoloft) 20 mg PO DAILY 12/17/17 01/30/21 telmisartan 20 mg tablet 20 mg PO DAILY 01/30/21 01/30/21 Previous Rx's Medication Instructions Recorded cyclobenzaprine 10 mg tablet 10 mg PO TID PRN muscle spasm #14 03/19/21 tabs Allergies Allergy/AdvReac Type Severity Reaction Status Date / Time venom-honey bee Allergy Severe ANAPHYLAXIS Verified 01/30/21 11:16 [BEE VENOM (HONEY BEE)] adhesive [ADHESIVE] Allergy Intermediate RASH Verified 01/30/21 11:16 PAPER/SILK TAPE OK Patient History Medical History Change in bowel habits Depression Erectile dysfunction Family history of colon cancer HTN (hypertension) Personal history of colonic polyps Surgical History H/O vasectomy History of tonsillectomy History of appendectomy H/O colonoscopy with polypectomy H/O vasectomy History of appendectomy History of tonsillectomy Family History Father Hypertension Diabetes mellitus Stroke Mother Cancer Social History household members: significant other and family occupational status: employed Smoking Status: Former smoker alcohol intake: current Smoking Status: Former smoker alcohol intake frequency: 0-2 drinks per day Substance Use Type: does not use Exam Initial Vital Signs Initial Vital Signs: Vital Signs Temperature 97.7 F 04/25/23 12:52 Pulse Rate 87 04/25/23 12:52 Respiratory Rate 16 04/25/23 12:52 Blood Pressure 132/82 04/25/23 12:52 Pulse Oximetry 97 04/25/23 12:52 Oxygen Delivery Method Room Air 04/25/23 12:52 Course Orders Ordered: ED Orders 04/25/23 12:58 US periph venous low extrem rt Stat Vital Signs Vital signs: Vital Signs - 8 hr 04/25/23 12:52 Temperature 97.7 F Pulse Rate 87 Respiratory Rate 16 Blood Pressure 132/82 Pulse Oximetry 97 Oxygen Delivery Method Room Air Discharge Plan Departure Clinical Impression: Acute superficial venous thrombosis of lower extremity, Deep venous thrombosis of upper extremity Prescriptions: No Action bupropion HCl [Wellbutrin XL] 300 mg tablet extended release 24 hr 300 mg PO ONCE sertraline [Zoloft] 25 mg tablet 20 mg PO DAILY hydrochlorothiazide 12.5 mg capsule 12.5 mg PO DAILY Patient Comments: unknown dose cyclobenzaprine 10 mg tablet 10 mg PO TID PRN (Reason: muscle spasm) Qty: 14 0RF telmisartan 20 mg tablet 20 mg PO DAILY Referrals: Agnes Baron MD [Primary Care Provider] -
--- NOTE | 2023-04-25 19:30 | ED.EXTPRO ---
HPI - Extremity Problem <Linda Watson PA-C - Last Filed: 04/25/23 19:31> General Chief complaint: Extremity Problem,Nontraumatic Stated complaint: rt leg poss blood clot Time Seen by Provider: 04/25/23 15:20 Source: patient Mode of arrival: Ambulatory History of Present Illness HPI Narrative: Patient left without being seen by a provider. Related Data Home Medications Medication Instructions Recorded Confirmed bupropion HCl 300 mg 24 hr tablet, 300 mg PO ONCE 12/17/17 01/30/21 extended release (Wellbutrin XL) hydrochlorothiazide 12.5 mg capsule 12.5 mg PO DAILY 12/17/17 01/30/21 sertraline 25 mg tablet (Zoloft) 20 mg PO DAILY 12/17/17 01/30/21 telmisartan 20 mg tablet 20 mg PO DAILY 01/30/21 01/30/21 Previous Rx's Medication Instructions Recorded cyclobenzaprine 10 mg tablet 10 mg PO TID PRN muscle spasm #14 03/19/21 tabs Allergies Allergy/AdvReac Type Severity Reaction Status Date / Time venom-honey bee Allergy Severe ANAPHYLAXIS Verified 01/30/21 11:16 [BEE VENOM (HONEY BEE)] adhesive [ADHESIVE] Allergy Intermediate RASH Verified 01/30/21 11:16 PAPER/SILK TAPE OK Patient History <Linda Watson PA-C - Last Filed: 04/25/23 19:31> Medical History Change in bowel habits Depression Erectile dysfunction Family history of colon cancer HTN (hypertension) Personal history of colonic polyps Surgical History H/O vasectomy History of tonsillectomy History of appendectomy H/O colonoscopy with polypectomy H/O vasectomy History of appendectomy History of tonsillectomy Family History Father Hypertension Diabetes mellitus Stroke Mother Cancer Social History household members: significant other and family occupational status: employed Smoking Status: Never smoker alcohol intake: current Smoking Status: Never smoker alcohol intake frequency: 0-2 drinks per day Substance Use Type: does not use Exam <Linda Watson PA-C - Last Filed: 04/25/23 19:31> Initial Vital Signs Initial Vital Signs: Vital Signs Temperature 97.7 F 04/25/23 12:52 Pulse Rate 87 04/25/23 12:52 Respiratory Rate 16 04/25/23 12:52 Blood Pressure 132/82 04/25/23 12:52 Pulse Oximetry 97 04/25/23 12:52 Oxygen Delivery Method Room Air 04/25/23 12:52 <Juana Sands DO - Last Filed: 04/25/23 19:44> Initial Vital Signs Initial Vital Signs: Vital Signs Temperature 97.7 F 04/25/23 12:52 Pulse Rate 87 04/25/23 12:52 Respiratory Rate 16 04/25/23 12:52 Blood Pressure 132/82 04/25/23 12:52 Pulse Oximetry 97 04/25/23 12:52 Oxygen Delivery Method Room Air 04/25/23 12:52 Course <Linda Watson PA-C - Last Filed: 04/25/23 19:31> Orders Ordered: ED Orders 04/25/23 12:58 US periph venous low extrem rt Stat Vital Signs Vital signs: Vital Signs - 8 hr 04/25/23 12:52 Temperature 97.7 F Pulse Rate 87 Respiratory Rate 16 Blood Pressure 132/82 Pulse Oximetry 97 Oxygen Delivery Method Room Air <Juana Sands DO - Last Filed: 04/25/23 19:44> Orders Ordered: ED Orders 04/25/23 12:58 periph venous low extrem rt Stat Vital Signs Vital signs: Vital Signs - 8 hr 04/25/23 12:52 Temperature 97.7 F Pulse Rate 87 Respiratory Rate 16 Blood Pressure 132/82 Pulse Oximetry 97 Oxygen Delivery Method Room Air Discharge Plan Departure Patient Disposition: Left Without Being Seen Clinical Impression: Acute superficial venous thrombosis of lower extremity, Deep venous thrombosis of upper extremity Prescriptions: No Action bupropion HCl [Wellbutrin XL] 300 mg tablet extended release 24 hr 300 mg PO ONCE sertraline [Zoloft] 25 mg tablet 20 mg PO DAILY hydrochlorothiazide 12.5 mg capsule 12.5 mg PO DAILY Patient Comments: unknown dose cyclobenzaprine 10 mg tablet 10 mg PO TID PRN (Reason: muscle spasm) Qty: 14 0RF telmisartan 20 mg tablet 20 mg PO DAILY ED Sign-out <Juana Sands, DO - Last Filed: 04/25/23 19:44> Cosign ED Attending Cosignature Attestation: Patient left without being seen never seen by me
== END 2023-04-25 16:51 | disposition left against medical advice (07) ==
PROVIDERS: Emergency Provider Physician Assistant; PCP Student in an Organized Health Care Education/Training Program
DX: M79.604 Pain in right leg (principal); Z86.718 Personal history of other venous thrombosis and embolism
CPT/HCPCS: 93971; 99281

== ENCOUNTER → 2024-05-14 12:34 | Outpatient (CLI) | payer OTHER, SELFPAY ==
--- NOTE | 2024-05-14 12:38 | DI.RAD.S_ITS ---
PROCEDURE: XR SHOULDER RT MIN 2V INDICATIONS: Primary osteoarthritis, right shoulder TECHNIQUE: 3 views of the shoulder were acquired. COMPARISON: None. FINDINGS: Bones: No fractures or dislocations but there is moderate glenohumeral joint degenerative osteoarthritic change and spurring. Subchondral cyst formation can be seen along the upper and lateral aspect of the humeral subarticular cortex.. No suspicious bony lesions. Visualized ribs appear intact. Soft tissues: No suspicious soft tissue calcifications. IMPRESSION: No trauma found. Moderate osteoarthritic change including subchondral cyst formation involving the humeral head. Osteophytic spurring. Dictated by: Dominic Garcia M.D. on 05/14/2024 at 14:16 Approved by: Dominic Garcia M.D. on 05/14/2024 at 14:17
== END ==
LOC: RAD 12:37
PROVIDERS: PCP Physician Assistant; Referring Provider Chiropractor; Visit Provider Chiropractor
DX: M19.011 Primary osteoarthritis, right shoulder (principal)
CPT/HCPCS: 73030

== ENCOUNTER → 2024-06-09 10:42 | Outpatient (CLI) | payer OTHER, SELFPAY | LOC: RESP 10:43 | PROVIDERS: PCP Physician Assistant; Referring Provider Chiropractor; Visit Provider Chiropractor | DX: J44.9 Chronic obstructive pulmonary disease, unspecified (principal); Z87.891 Personal history of nicotine dependence; J98.8 Other specified respiratory disorders; R94.2 Abnormal results of pulmonary function studies | CPT/HCPCS: 94060 ==

== ENCOUNTER → 2024-06-09 11:22 | Outpatient (CLI) | payer OTHER, SELFPAY ==
--- NOTE | 2024-06-09 | DI.RAD.S_ITS ---
PROCEDURE: XR CHEST 2V INDICATIONS: Chronic obstructive pulmonary disease, unspecified TECHNIQUE: 2 views of the chest were acquired. COMPARISON: Merged With [facility], CR, XR CHEST 1V, 03/18/2021, 7:53. FINDINGS: Surgical changes and devices: None. Lungs and pleura: Lungs are clear. No pleural effusions or pneumothorax. Mediastinum: Mediastinal contours are normal. Heart size is normal. Bones and chest wall: No suspicious bony abnormalities. Soft tissues appear unremarkable. IMPRESSION: No acute cardiopulmonary abnormality is seen. Dictated by: Jerry Galeana M.D. on 06/09/2024 at 12:50 Approved by: Jerry Galeana M.D. on 06/09/2024 at 12:51
== END ==
LOC: RAD 11:23
PROVIDERS: PCP Physician Assistant; Referring Provider Chiropractor; Visit Provider Chiropractor
DX: J44.9 Chronic obstructive pulmonary disease, unspecified (principal)
CPT/HCPCS: 71046; 94060

== ENCOUNTER → 2024-12-06 08:35 | Outpatient (CLI) | payer OTHER, SELFPAY | LOC: RESP 08:36 | PROVIDERS: PCP Physician Assistant; Referring Provider Chiropractor; Visit Provider Chiropractor | DX: J40 Bronchitis, not specified as acute or chronic (principal); J98.8 Other specified respiratory disorders; R94.2 Abnormal results of pulmonary function studies | CPT/HCPCS: 94060 ==